=== PATIENT | female | born 1975 | race Hispanic/Latino ===

== ENCOUNTER → 2019-06-07 | Outpatient (CLI) | payer BC | END | disposition home or self-care (01) | LOC: RAH 14:43 | DX: Z12.31 Encounter for screening mammogram for malignant neoplasm of breast (principal) | CPT/HCPCS: 77067 ==

== ENCOUNTER 2021-03-14 09:00 | Inpatient (IN) | payer BC, MEDICARE ==
[~2021-03-14] VITALS: Ht 167.6 cm; Wt 93.1 kg
[2021-03-16 14:16] LABS: BASOPHILS % (AUTO) 0.8 % (0.0-5.0); EOSINOPHILS % (AUTO) 1.9 % (0.0-8.0); HEMATOCRIT 39.2 % (36-48); LYMPHOCYTES % (AUTO) 26.4 % (21.0-51.0); MEAN CORPUSCULAR HEMOGLOBIN 28.3 pg (27.0-33.0); MEAN CORPUSCULAR HGB CONC 32.7 g/dL (32.0-36.0); MEAN CORPUSCULAR VOLUME 86.7 fL (79-99); MONOCYTES % (AUTO) 6.6 % (3.0-13.0); NEUTROPHILS % (AUTO) 63.9 % (40.0-77.0); PLATELET COUNT (AUTO) 246 K/uL (130-400); RED BLOOD CELL COUNT(AUTO) 4.52 MIL/uL (4.00-5.50); RED CELL DISTRIBUTION WIDTH 13.6 % (11.0-15.5); WHITE BLOOD COUNT (AUTO) 7.8 K/uL (4.8-10.8)
[2021-03-22 08:47] VITALS: BP 131/66
[2021-03-22] MEDS ORDERED: PRAZ1CAP5 PO (12:00)
[2021-03-22] MEDS ORDERED: EREN70AU2 SQ (12:00)
[2021-03-22] MEDS ORDERED: QUET300T19 PO (12:01)
[2021-03-23] VITALS (22 sets, daily range): BP systolic 92–139; BP diastolic 44–77
[2021-03-23] MEDS ORDERED: CALDOLOR 800MG+NS 250ML 250 ML IV SCH (06:00)
[2021-03-23] MEDS ORDERED: LACTATED RINGERS 1000ML 1,000 ML IV SCH (06:00)
[2021-03-23] MEDS ORDERED: MIDAZOLAM HCL 1 MG/ML 2ML VIAL ONE (10:25)
[2021-03-23] MEDS ORDERED: LIDOCAINE PF 100MG/5ML (2%) SYRINGE 5ML ONE (10:25)
[2021-03-23] MEDS ORDERED: ROCURONIUM 10MG/1ML SYR 10 MG/ML ML ONE (10:26)
[2021-03-23] MEDS ORDERED: PROPOFOL 10 MG/ML 20ML VIAL IV ONE (10:26)
[2021-03-23] MEDS ORDERED: FENTANYL CITRATE PF 50 MCG/1 ML 2ML VIAL ONE (10:26)
[2021-03-23] MEDS ORDERED: MORPHINE PF 100MG/10ML AMP IV ONE (10:31)
[2021-03-23] MEDS: CLINDAMYCIN IVPB 600MG/50ML 50 ML IV SCH ×2 (11:04→16:30)
[2021-03-23] MEDS ORDERED: EPHEDRINE SULFATE 50 MG/ML AMPULE ONE (11:45)
[2021-03-23] MEDS ORDERED: BISACODYL 10 MG SUPP.RECT RC PRN (12:30)
[2021-03-23] MEDS ORDERED: ACETAMINOPHEN WITH CODEINE 1 TAB TAB PO PRN (12:30)
[2021-03-23] MEDS ORDERED: MEPERIDINE-PF 25 MG/ML SYG ONE ×2 (13:07→13:18)
[2021-03-23] MEDS: MEPERIDINE-PF 75 MG/ML SYG IM PRN ×2 (14:17→19:46)
[2021-03-23] MEDS: DEXTROSE 5 %-0.45 % NACL 1,000 ML IV PRN (14:17)
[2021-03-23] MEDS: PROMETHAZINE HCL 25 MG/ML 1ML AMPULE IM PRN ×2 (14:18→19:46)
[2021-03-23] MEDS ORDERED: PNEUMOCOCCAL VACCINE POLYVALENT 0.5 ML/VIAL [PPV] IM ONE (15:00)
[2021-03-23] MEDS ORDERED: FLU VACC QS2021-22(6MOS UP)/PF 60 MCG/0.5 ML ML IM ONE (15:00)
[2021-03-23] MEDS: INSULIN HUMULIN R 100 UNIT/ML 3ML SQ SCH ×2 (16:30→21:00)
[2021-03-24] MEDS: PROMETHAZINE HCL 25 MG/ML 1ML AMPULE IM PRN ×2 (00:59→06:30)
[2021-03-24] MEDS: MEPERIDINE-PF 75 MG/ML SYG IM PRN ×2 (01:00→06:31)
[2021-03-24] MEDS ORDERED: ACETAMINOPHEN 500 MG TABLET PO PRN (03:00)
[2021-03-24 03:23] VITALS: BP 114/73
[2021-03-24] MEDS: INSULIN HUMULIN R 100 UNIT/ML 3ML SQ SCH ×3 (06:54→21:00)
[2021-03-24 07:23] VITALS: BP 104/55
[2021-03-24] MEDS ORDERED: ONDANSETRON 4MG INJ IVP PRN (09:00)
[2021-03-24] MEDS: SIMETHICONE 80 MG TAB.CHEW PO PRN ×2 (09:16→20:29)
[2021-03-24] MEDS: DOCUSATE SODIUM 100 MG CAP PO PRN ×2 (09:16→20:29)
[2021-03-24] MEDS ORDERED: IBUPROFEN 800 MG TAB PO SCH (10:00)
[2021-03-24] MEDS: DEXTROSE 5 %-0.45 % NACL 1,000 ML IV PRN (10:01)
[2021-03-24] MEDS: HYDROCODONE/ACETAMINOPHEN 5/325 MG TAB PO PRN ×3 (10:37→23:24)
[2021-03-24 11:40] VITALS: BP 120/64
[2021-03-24] MEDS: IBUPROFEN 800 MG TAB PO SCH ×2 (13:40→22:02)
[2021-03-24 17:16] VITALS: BP 129/81
[2021-03-24 19:33] VITALS: BP 125/79
[2021-03-24 23:31] VITALS: BP 142/73
[2021-03-25 03:20] VITALS: BP 116/54
[2021-03-25] MEDS: IBUPROFEN 800 MG TAB PO SCH (05:22)
[2021-03-25] MEDS: DOCUSATE SODIUM 100 MG CAP PO PRN (09:11)
[2021-03-25] MEDS: SIMETHICONE 80 MG TAB.CHEW PO PRN (09:11)
[2021-03-25] MEDS: HYDROCODONE/ACETAMINOPHEN 5/325 MG TAB PO PRN (09:12)
== END 2021-03-25 10:45 | disposition home or self-care (01) | DRG 743 ==
LOC: DAHIP 03-23 06:37 → WSH 03-23 13:45
PROVIDERS: ADMIT Obstetrics & Gynecology; ATTEND Obstetrics & Gynecology
PROC: 0UT90ZZ Resection of Uterus, Open Approach (ICD-10-PCS; principal; 2021-03-23 10:24)
PROC: 0UB70ZZ Excision of Bilateral Fallopian Tubes, Open Approach (ICD-10-PCS; 2021-03-23 10:24)
PROC: 0TQD0ZZ Repair Urethra, Open Approach (ICD-10-PCS; 2021-03-23 10:24)
DX: N92.1 Excessive and frequent menstruation with irregular cycle (principal); N94.12 Deep dyspareunia; E11.9 Type 2 diabetes mellitus without complications; N39.3 Stress incontinence (female) (male); Z20.822 Contact with and (suspected) exposure to COVID-19; E66.9 Obesity, unspecified; Z68.33 Body mass index [BMI] 33.0-33.9, adult; Z88.0 Allergy status to penicillin; Z88.5 Allergy status to narcotic agent; Z87.891 Personal history of nicotine dependence
CPT/HCPCS: 36415; 82948; 84703; 85025; 86850; 86900; 86901; 87635; 90732; A4344; G0378; J1741; J2001; J2175; J2250; J2274; J2405; J2550; J2704; J3010; J3490; J7030; J7120; Q2035

== ENCOUNTER → 2021-04-17 | Outpatient (CLI) | payer BC, MEDICARE ==
[~2021-04-17] MED LIST: EREN70AU2 SQ; PRAZ1CAP5 PO; QUET300T19 PO
== END | disposition home or self-care (01) ==
LOC: RAH 10:42
PROVIDERS: ATTEND Internal Medicine
DX: R31.9 Hematuria, unspecified (principal)
CPT/HCPCS: 76770

== ENCOUNTER → 2023-12-08 | Outpatient (CLI) | payer BC, MEDICARE ==
[~2023-12-08] MED LIST changes: +IOHEXOL-350 75 ML VIAL IV ONE; +NAPR-1023 PO; -PRAZ1CAP5 PO; -QUET300T19 PO; +TOPI200T PO
== END | disposition home or self-care (01) ==
LOC: RAH 11:04
PROVIDERS: ATTEND Surgery
DX: N32.89 Other specified disorders of bladder (principal); M47.815 Spondylosis without myelopathy or radiculopathy, thoracolumbar region
CPT/HCPCS: 74177; Q9967

== ENCOUNTER 2024-04-20 14:17 | Emergency (ER) | payer BC, MEDICARE ==
[~2024-04-20] VITALS: Ht 170.2 cm; Wt 68.0 kg
[~2024-04-20 14:17] MED LIST changes: -IOHEXOL-350 75 ML VIAL IV ONE
--- NOTE | 2024-04-20 15:04 | ERN ---
ED Note History of Present Illness Stated Complaint: SYNCOPE Chief Complaint: Syncope Time Seen by MD: 14:50 Dictation: 49-year-old female presents to the ED for evaluation post syncopal episode onset [employer]. Patient reports she fell in the shower and is now complaining of headache, back pain and cough.PCP- Dr. Lacey. Allergies: Coded Allergies: Penicillins (Verified Allergy, Unknown, 03/16/21) codeine (Unverified Allergy, Unknown, 03/22/21) Home Meds Reported Medications Topiramate (Topamax) 200 Mg Tablet, 200 MG PO HS, TAB 01/08/22 Naproxen (Naproxen) 500 Mg Tablet, 500 MG PO BID, TAB 01/08/22 Erenumab-Aooe (Aimovig Autoinjector) 140 Mg/1 Ml Auto.injct, 140 MG SQ QMONTH, CARTRIDGE 03/22/21 Review of System Dictation Constitutional: Negative for fever,chills, and weight loss Eyes: Negative for injury, pain,redness, and discharge ENT: Negative for injury,pain or swelling Cardiovascular: Negative for chest pain, palpitations, and edema Respiratory: Positive for cough Negative for shortness of breath and wheezing, Abdomen/GI: Negative for abdominal pain, nausea, vomiting, diarrhea, and constipation Back: Positive for back pain : Negative for injury, bleeding and discharge MS/Extremity: Negative for injury and deformity Skin: Negative for rash, and discoloration Neuro: Positive for syncope, headache, negative for weakness, numbness, tingling, and seizure Psych: Negative for suicide ideation, homicidal ideation, and hallucinations Initial Vital Sign VS Vital Signs Date Time Temp Pulse Resp B/P (MAP) Pulse Ox O2 Delivery O2 Flow Rate FiO2 04/20/24 14:54 101.1 105 20 112/59 99 Room Air 0 04/20/24 15:12 21 Physical Exam Dictation General: awake, alert, NAD Head/Face: Normocephalic, atraumatic Eyes: PERRL, EOMI, vision at baseline ENT: oral cavity clear, TMs clear, no signs of infection Neck: Trachea midline, supple, no nuchal rigidity Cardiovascular: RRR, normal S1/S2, No MRGs, no JVD Respiratory: CTAB, no respiratory distress, No rales or wheezes Abdomen: Soft, non-tender, non-distended, normal bowel sounds, no guarding or rebound. Skin: Warm, dry, normal turgor, no rash MS/Extremity: Pulses equal, no cyanosis, neurovascular intact, FROM Neuro: COAx4, GCS 15, strength 5/5, CN 2-12 intact, normal cerebellar exam, normal gait, Psych: Normal behavior, mood, and affect normal Results (Laboratory/Radiology) Laboratory/Radiology Laboratory Tests Test 04/20/24 14:30 04/20/24 14:51 04/20/24 17:20 White Blood Count 10.5 K/uL (4.8-10.8) Red Blood Count 3.89 MIL/uL (4.00-5.50) L Hemoglobin 12.3 g/dL (12.0-16.0) Hematocrit 35.9 % (36-48) L Mean Corpuscular Volume 92.3 fL (79-99) Mean Corpuscular Hemoglobin 31.6 pg (27.0-33.0) Mean Corpuscular Hemoglobin Concent 34.3 g/dL (32.0-36.0) Red Cell Distribution Width 12.2 % (11.0-15.5) Platelet Count 194 K/uL (130-400) Mean Platelet Volume 11.5 fL (7.5-10.5) H Immature Granulocyte % (Auto) 0.3 % (0-1) Neutrophils (%) (Auto) 89.5 % (40.0-77.0) H Lymphocytes (%) (Auto) 3.1 % (21.0-51.0) L Monocytes (%) (Auto) 6.5 % (3.0-13.0) Eosinophils (%) (Auto) 0.2 % (0.0-8.0) Basophils (%) (Auto) 0.4 % (0.0-5.0) Neutrophils # (Auto) 9.4 K/uL (1.8-7.7) H Lymphocytes # (Auto) 0.3 K/uL (1.0-4.8) L Monocytes # (Auto) 0.7 K/uL (0.1-1.0) Eosinophils # (Auto) 0.02 K/uL (0.00-0.70) Basophils # (Auto) 0.04 K/uL (0.00-0.20) Absolute Immature Granulocyte (auto 0.03 K/uL (0-1) Nucleated Red Blood Cells 0.0 % (0.0-0.19) White Cell Morphology Comment See comments Sodium Level 143 mmol/L (136-145) Potassium Level 3.2 mmol/L (3.5-5.1) L Chloride Level 107 mmol/L (101-111) Carbon Dioxide Level 29 mmol/L (21-32) Blood Urea Nitrogen 10 mg/dL (7-18) Creatinine 0.9 mg/dL (0.5-1.0) Glomerular Filtration Rate Calc 79 mL/min (>90) Random Glucose 142 mg/dL (70-105) H Lactic Acid Level 1.8 mmol/L (0.8-2.5) Total Calcium 8.3 mg/dL (8.5-10.1) L Total Bilirubin 0.5 mg/dL (0.2-1.0) Direct Bilirubin 0.1 mg/dL (0.0-0.3) Aspartate Amino Transf (AST/SGOT) 25 U/L (10-37) Alanine Aminotransferase (ALT/SGPT) 27 U/L (12-78) Alkaline Phosphatase 120 U/L (50-136) Total Protein 6.5 g/dL (6.0-8.3) Albumin 3.5 g/dL (3.5-5.0) Influenza Type A Antigen Negative For Type A Influenza Type B Antigen Negative For Type B SARS-CoV-2, RNA, NAAT NEGATIVE SARS CoV-2 Group A Streptococcus Rapid negative (NEGATIVE) Urine Color LIGHT-YELLOW (YELLOW) Urine Appearance CLEAR (CLEAR) Urine pH 6.0 (5.0-8.0) Urine Specific Mcandrews 1.014 (1.001-1.031) Urine Protein 10 mg/dL (NEGATIVE) H Urine Glucose (UA) NEGATIVE mg/dL (NEGATIVE) Urine Ketones NEGATIVE mg/dL (NEGATIVE) Urine Occult Blood +- (TRACE) (NEGATIVE) H Urine Nitrate NEGATIVE (NEGATIVE) Urine Bilirubin NEGATIVE mg/dL (NEGATIVE) Urine Urobilinogen 0.2 mg/dL (0.2-1.0) Urine Leukocyte Esterase NEGATIVE Henrietta/uL Urine RBC 2-5 /HPF (0-1) H Urine WBC 2-5 /HPF (0-1) H Urine Squamous Epithelial Cells RARE /HPF (0-2) Urine Bacteria RARE /HPF (None Seen) Urine Other Casts 6 /LPF (None Seen) Labs Reviewed?: Yes X-RAY Comment: REASON: fever ORDERING PHYSICIAN: DEISY SILVERIO MD PROCEDURE: CXR1VW - CHEST 1VW CHEST 1VW HISTORY: Syncope COMPARISON: None FINDINGS: A frontal projection of the chest was obtained. Prominent interstitial markings are seen with possible superimposed infiltrates. The heart is normal in size. Degenerative changes are seen. No evidence of aortic calcification is seen. IMPRESSION: 1. Prominent interstitial markings are seen with possible superimposed infiltrates. DICTATED BY: BERONICA PADILLA MD DATE: 04/20/24 1541 ED Course ED Course Orders Procedure Category Date Status Time Basic Metabolic Panel LAB 04/20/24 Complete 15:00 Blood Cult CAROL 04/20/24 In Process 15:00 Cbc With Differential LAB 04/20/24 Complete 15:00 Hepatic Function Panel LAB 04/20/24 Complete 15:00 Lactic Acid LAB 04/20/24 Complete 15:00 Urinalysis Profile LAB 04/20/24 Complete 15:00 Chest 1vw RAD 04/20/24 Resulted 15:00 0.9%Nacl 1000ml (Ns PHA 04/20/24 Complete 1000ml) 15:30 Ceftriaxone 1g Vial PHA 04/20/24 Complete (Rocephine 1g Inj) 15:30 Acetaminophen 500mg PHA 04/20/24 Complete Tab (Tylenol 500mg T 15:30 Influenza Type A & B, LAB 04/20/24 Complete Rapid 15:04 Covid Rna Naat LAB 04/20/24 Complete 15:35 Rapid (Group A Strep) LAB 04/20/24 Complete 15:35 Current Medications Medications (Trade) Dose Ordered Sig/Kusum Route PRN Reason Start Time Stop Time Status Last Admin Dose Admin Acetaminophen (TYLenol 500MG TAB) 1,000 mg ONCE ONCE PO 04/20/24 15:30 04/20/24 15:31 DC 04/20/24 15:53 Ceftriaxone Sodium (ROCEphine 1G INJ) 2 gm ONCE ONCE IVPB 04/20/24 15:30 04/20/24 15:31 DC 04/20/24 15:52 Sodium Chloride 1,000 ml @ 0 mls/hr ONCE ONCE IV 04/20/24 15:30 04/20/24 15:31 DC 04/20/24 15:52 Vital Signs Date Time Temp Pulse Resp B/P (MAP) Pulse Ox O2 Delivery O2 Flow Rate FiO2 04/20/24 18:20 98.8 93 20 122/63 99 Room Air* 0 21 04/20/24 17:30 98.8 97 20 102/61 95 Room Air* 0 21 04/20/24 16:26 100.9 105 20 106/51 99 Room Air* 0 21 04/20/24 15:12 100.9 105 20 112/55 99 Room Air* 0 21 04/20/24 14:54 101.1 105 20 112/59 99 Room Air 0 Medical Decision Making MDM MDM: Differential diagnosis: Fever, syncope episode, back pain Rationale: Tests considered and ordered secondary to shared decision making include: labs, ECG and radiology Risk of complication and/or morbidity or mortality of patient management: None Medications-Per medication reconciliation Need for hospitalization: Patient does not meet criteria for hospitalization. Need for emergency major/minor surgery: No There are no social concerns with this patient. I independently interpreted the test that were performed, results were reviewed by me and considered findings on radiology if ordered. Medical management and examination interpretation discussions were had by me with other qualified healthcare professionals as indicated for the patient's care. DX & DISP Disposition: Discharge Departure Impression: Primary Impression: Fever Additional Impression: Acute dehydration Condition: Stable Referrals: LIVIER ROBLES MD (PCP) I have reviewed, & agreed with my scribe's, documentation. (Entered by Mark Astorga, acting as a scribe for Dr. Silverio) I personally scribed for DEISY SILVERIO MD ([email or web address]) on 04/20/24 at 15:04. Electronically submitted by Mark Astorga ([email or web address]). DEISY SILVERIO MD Apr 20, 2024 15:04
--- NOTE | 2024-04-20 15:44 | HMCIMG ---
CHEST 1VW HISTORY: Syncope COMPARISON: None FINDINGS: A frontal projection of the chest was obtained. Prominent interstitial markings are seen with possible superimposed infiltrates. The heart is normal in size. Degenerative changes are seen. No evidence of aortic calcification is seen. IMPRESSION: 1. Prominent interstitial markings are seen with possible superimposed infiltrates.
[2024-04-20 15:45] LABS: BASOPHILS # (AUTO) 0.04 K/uL (0.00-0.20); BASOPHILS % (AUTO) 0.4 % (0.0-5.0); EOSINOPHILS # (AUTO) 0.02 K/uL (0.00-0.70); EOSINOPHILS % (AUTO) 0.2 % (0.0-8.0); HEMATOCRIT 35.9 % (36-48); IMMATURE GRANULOCYTE ABSOLUTE 0.03 K/uL (0-1); LYMPHOCYTES # (AUTO) 0.3 K/uL (1.0-4.8); LYMPHOCYTES % (AUTO) 3.1 % (21.0-51.0); MEAN CORPUSCULAR HEMOGLOBIN 31.6 pg (27.0-33.0); MEAN CORPUSCULAR HGB CONC 34.3 g/dL (32.0-36.0); MEAN CORPUSCULAR VOLUME 92.3 fL (79-99); MONOCYTES # (AUTO) 0.7 K/uL (0.1-1.0); MONOCYTES % (AUTO) 6.5 % (3.0-13.0); NEUTROPHILS # (AUTO) 9.4 K/uL (1.8-7.7); NEUTROPHILS % (AUTO) 89.5 % (40.0-77.0); PLATELET COUNT (AUTO) 194 K/uL (130-400); RED BLOOD CELL COUNT(AUTO) 3.89 MIL/uL (4.00-5.50); RED CELL DISTRIBUTION WIDTH 12.2 % (11.0-15.5); WHITE BLOOD COUNT (AUTO) 10.5 K/uL (4.8-10.8)
[2024-04-20] MEDS: cefTRIAXone 1G VIAL IVPB ONE (15:52)
[2024-04-20] MEDS: 0.9%NACL 1000ML 1,000 ML IV ONE (15:52)
[2024-04-20] MEDS: acetaMINOPHEN 500 MG TABLET PO ONE (15:53)
[2024-04-20 15:54] LABS: RAPID GROUP A STREP negative (NEGATIVE)
[2024-04-20 15:59] LABS: CREATININE 0.9 mg/dL (0.5-1.0); POTASSIUM 3.2 mmol/L (3.5-5.1)
[2024-04-20 16:03] LABS: INFLUENZA TYPE A Negative For Type A (NEGATIVE); INFLUENZA TYPE B Negative For Type B (NEGATIVE)
[2024-04-20 16:04] LABS: ALBUMIN 3.5 g/dL (3.5-5.0); BILIRUBIN,DIRECT 0.1 mg/dL (0.0-0.3); BILIRUBIN,TOTAL 0.5 mg/dL (0.2-1.0); TOTAL PROTEIN, SERUM 6.5 g/dL (6.0-8.3)
[2024-04-20 16:16] LABS: SARS-CoV-2, RNA, NAAT NEGATIVE SARS CoV-2 (NEGATIVE)
[2024-04-20 17:21] VITALS: TEMP 98.7
[2024-04-20 17:34] LABS: APPEARANCE,URINE CLEAR (CLEAR); BILIRUBIN,URINE NEGATIVE (NEGATIVE); COLOR,URINE LIGHT-YELLOW (YELLOW); GLUCOSE, URINE (UA) NEGATIVE (NEGATIVE); KETONES,URINE NEGATIVE (NEGATIVE); LEUKOCYTE ESTERASE ,URINE NEGATIVE Leu/uL (NEGATIVE); NITRATE,URINE NEGATIVE (NEGATIVE); PROTEIN,URINE 10 mg/dL (NEGATIVE); UROBILINOGEN,URINE 0.2 mg/dL (0.2-1.0)
[2024-04-20 17:36] LABS: ADD UA MICROSCOPIC YES
[2024-04-20 17:44] LABS: BACTERIA,URINE RARE /HPF (None Seen); MUCUS,URINE MOD LPF (None Seen); OTHER CASTS, URINE 6 /LPF (None Seen); SQUAMOUS EPITHELIAL CELL,UR RARE /HPF (0-2)
[2024-04-20 18:20] VITALS: BP 122/63; PULSE 93; RESP 20; TEMP 98.8; O2SAT 99
== END 2024-04-20 18:21 | disposition home or self-care (01) ==
LOC: EDH 14:17
DX: R50.9 Fever, unspecified (principal); E86.0 Dehydration; Z88.0 Allergy status to penicillin; Z88.5 Allergy status to narcotic agent; Z20.822 Contact with and (suspected) exposure to COVID-19
CPT/HCPCS: 99284; 96365; 71045; 87635; 80076; 80048; 85025; 87040 ×2; 87880; 87804 ×2; 83605; 81001; 36415; J7030; J0696

== ENCOUNTER → 2024-10-07 | Outpatient (CLI) | payer OTHER, MEDICARE ==
[~2024-10-07] MED LIST changes: -NAPR-1023 PO; +NAPR-1194 PO
--- NOTE | 2024-10-07 12:52 | HMCIMG ---
MRI of the lumbar spine without gadolinium Technique: Sagittal T1 and T2 FSE, Sagittal STIR and Sagittal proton density images were completed through the lumbosacral spine. Axial T1, T2 and proton density images were also acquired. FINDINGS: Examination shows adequate alignment of the vertebral bodies of the lumbar spine. No fractures or dislocations are identified. Vertebral body height and disc height is preserved at all levels. The bone marrow signal is normal for age. The spinal canal contents are preserved. The conus terminates at a normal level at T12 to L2. The paraspinal muscles and other tissues show no significant abnormalities. Evaluation of the lumbar spine by level: T12-L1: There is no spinal canal stenosis. No disc herniation or bulge is noted. There is no neural foraminal stenosis, impingement, or narrowing. L1-L2: There is no spinal canal stenosis. No disc herniation or bulge is noted. There is no neural foraminal stenosis, impingement, or narrowing. L2-L3: There is no spinal canal stenosis. No disc herniation or bulge is noted. There is no neural foraminal stenosis, impingement, or narrowing. L3-L4: There is no spinal canal stenosis. No disc herniation or bulge is noted. There is no neural foraminal stenosis, impingement, or narrowing. L4-L5: There is no spinal canal stenosis. Mild posterior disc bulge is noted. There is no neural foraminal stenosis, impingement, or narrowing. L5-S1: There is no spinal canal stenosis. No disc herniation or bulge is noted. There is no neural foraminal stenosis, impingement, or narrowing. Impression: Mild posterior disc bulge L4-5. No canal stenosis. No nerve root impingement. No neural foramina narrowing.
--- NOTE | 2024-10-08 09:09 | HMCIMG ---
SCREENING MAMMOGRAM HISTORY: Annual screening. COMPARISON: June 07, 2019. TECHNIQUE: Mammogram with CAD was performed with CC and MLO and ML projections. Exam done with and without implant displacement views. FINDINGS: Bilateral retropectoral implants are identified. The breasts are heterogeneously dense, which may obscure small masses.. No dominant mass or suspicious microcalcification identified. There is no nipple retraction or skin thickening. Benign-appearing calcifications are seen bilaterally. CAD shows no worrisome regions. IMPRESSION: 1. No mammographic signs of malignancy. 2. Routine follow-up recommended BI-RADS: CATEGORY 2: BENIGN FINDINGS Note: A negative x-ray should not delay biopsy if a dominant or clinically suspicious mass is present, since 8-10% of cancers are not identified by mammography. Dense breasts particularly, may obscure an underlying neoplasm.
== END | disposition home or self-care (01) ==
LOC: RAH 11:26
PROVIDERS: ATTEND Family Medicine
DX: Z12.31 Encounter for screening mammogram for malignant neoplasm of breast (principal); R92.333 Mammographic heterogeneous density, bilateral breasts; M48.062 Spinal stenosis, lumbar region with neurogenic claudication; M51.369 Other intervertebral disc degeneration, lumbar region without mention of lumbar back pain or lower extremity pain
CPT/HCPCS: 72148; 77067